=== PATIENT | female | born 1970 ===

== ENCOUNTER 2022-11-08 10:27 | Outpatient (REF) | payer OTHER, SELFPAY ==
[2022-11-08 11:15] LABS: MANUAL DIFF FLAG NO
[2022-11-08 11:43] LABS: Basophils Percent Auto 0.4 % (0-2); Eosinophils Absolute Auto 0.1 X10*3/uL (0.0-0.4); Eosinophils Percent Auto 1.6 % (0-4); Hematocrit 44.8 % (37.0-47.0); Hemoglobin 14.5 g/dl (12.0-16.0); Imm Gran Abs Auto 0.02 X10*3/uL (0.00-0.03); Imm Gran Pct Auto 0.4 % (0.0-0.4); Lymphocytes Absolute Auto 1.8 X10*3/uL (1.2-4.9); Lymphocytes Percent Auto 36.5 % (20-40); Mean Corpuscular HGB Conc 32.4 g/dl (31.0-35.0); Mean Corpuscular Hemoglobin 27.4 pg (27.0-33.0); Mean Corpuscular Volume 84.5 fL (80.0-98.0); Monocytes Absolute Auto 0.5 X10*3/uL (0.1-1.2); Monocytes Percent Auto 10.3 % (2-11); Neutrophils Absolute Auto 2.5 x10*3/uL (2.0-8.3); Neutrophils Percent Auto 50.8 % (45-73); Platelet Count 244 X10*3/uL (160-400); Red Cell Distribution Width 12.9 % (11.0-16.0); White Blood Count 4.9 X10*3/uL (4.8-10.8)
[2022-11-08 12:05] LABS: Alanine Aminotransferase 27 U/L (0-31); Albumin Level 3.8 g/dL (3.5-5.0); Alkaline Phosphatase 81 U/L (39-117); Anion Gap 12 (12-20); Aspartate Amino Transferase 19 U/L (5-31); Bilirubin Total 1.1 mg/dL (0.0-1.0); Blood Urea Nitrogen 8 mg/dL (9-16); Calcium 8.7 mg/dL (8.4-10.2); Carbon Dioxide 25 mmol/L (22-29); Chloride 108 mmol/L (96-108); Cholesterol 154 mg/dL; Estimated Glomerular Filt Rate > 60; Glucose Fasting 82 mg/dL (60-99); HDL Cholesterol 29 mg/dL; LDL Cholesterol Calculated 118 mg/dl; Potassium 4.5 mmol/L (3.3-5.1); Sodium 140 mmol/L (135-145); Total Protein 6.7 g/dL (6.5-8.0); Triglycerides 39 mg/dL
[2022-11-08 12:20] LABS: TSH reflex Free T4 1.05 uIU/mL (0.32-4.0)
[2022-11-08 12:28] LABS: Creatinine Urine 106.89 mg/dL; Microalbumin Urine < 5.0 mg/L
== END 2022-11-08 10:28 | disposition home or self-care (01) ==
LOC: HO.HMGCLDS 10:27
PROVIDERS: PCP Internal Medicine; Visit Provider Internal Medicine
DX: E03.9 Hypothyroidism, unspecified (principal); I10 Essential (primary) hypertension
CPT/HCPCS: 36415; 80053; 80061; 82043; 84443; 85025

== ENCOUNTER 2023-11-13 10:05 | Outpatient (REF) | payer OTHER, SELFPAY ==
[2023-11-13 13:24] LABS: MANUAL DIFF FLAG NO
[2023-11-13 13:28] LABS: Basophils Percent Auto 0.5 % (0-2); Eosinophils Absolute Auto 0.1 X10*3/uL (0.0-0.4); Hematocrit 41.8 % (37.0-47.0); Hemoglobin 13.7 g/dl (12.0-16.0); Imm Gran Abs Auto 0.01 X10*3/uL (0.00-0.03); Imm Gran Pct Auto 0.2 % (0.0-0.4); Lymphocytes Absolute Auto 1.8 X10*3/uL (1.2-4.9); Lymphocytes Percent Auto 43.3 % (20-40); Mean Corpuscular HGB Conc 32.8 g/dl (31.0-35.0); Mean Corpuscular Hemoglobin 26.5 pg (27.0-33.0); Mean Corpuscular Volume 80.9 fL (80.0-98.0); Mean Platelet Volume 10.4 fL (9.4-12.3); Monocytes Absolute Auto 0.4 X10*3/uL (0.1-1.2); Monocytes Percent Auto 9.5 % (2-11); Neutrophils Absolute Auto 1.8 x10*3/uL (2.0-8.3); Neutrophils Percent Auto 44.5 % (45-73); Platelet Count 224 X10*3/uL (160-400); Red Blood Count 5.17 X10*6/uL (4.20-5.50); Red Cell Distribution Width 12.2 % (11.0-16.0); White Blood Count 4.1 X10*3/uL (4.8-10.8)
[2023-11-13 13:38] LABS: Appearance Urine Clear; Color Urine Yellow; Glucose Urine UA Negative (Negative); Leukocyte Esterase Urine Moderate (2+) (Negative); Nitrite Urine Negative (Negative); UMIC TRIGGER UA YES; Urine Blood Negative (Negative); Urine Ketones Negative (Negative); Urine Protein Negative (Neg-Trace)
[2023-11-13 13:53] LABS: Bacteria Urine Trace (None Seen); Hyaline Casts Urine 0-2 /LPF (0-2); RBC Urine 0-2 /HPF (0-2); Squamous Epithelial Cell Urine 0-2 /HPF (0-2); WBC Urine 0-5 /HPF (0-5)
[2023-11-13 13:56] LABS: Alanine Aminotransferase 21 U/L (0-31); Albumin Level 3.8 g/dL (3.5-5.0); Alkaline Phosphatase 98 U/L (39-117); Anion Gap 11 (12-20); Aspartate Amino Transferase 20 U/L (5-31); Bilirubin Total 1.2 mg/dL (0.0-1.0); Blood Urea Nitrogen 8 mg/dL (9-16); Calcium 9.5 mg/dL (8.4-10.2); Carbon Dioxide 31 mmol/L (22-29); Chloride 105 mmol/L (96-108); Cholesterol 181 mg/dL (<200); Estimated Glomerular Filt Rate > 60; Glucose Fasting 93 mg/dL (60-99); HDL Cholesterol 45 mg/dL (>40); Iron 93 mcg/dL (30-160); LDL Cholesterol Calculated 122 mg/dL (<100); Percent Iron Saturation 32 % (15-50); Potassium 3.1 mmol/L (3.3-5.1); Sodium 144 mmol/L (135-145); Total Iron Binding Capacity 295 mcg/dL (228-428); Total Protein 7.3 g/dL (6.5-8.0); Triglycerides 72 mg/dL (<150); Unsaturated Iron Binding 202 ug/dL
[2023-11-13 14:00] LABS: TSH reflex Free T4 < 0.01 uIU/mL (0.32-4.0)
[2023-11-13 14:43] LABS: Free T4 (Free Thyroxine) 1.42 ng/dL (0.71-1.85)
== END 2023-11-13 10:06 | disposition home or self-care (01) ==
LOC: HO.HMGCLDS 10:05
PROVIDERS: PCP Internal Medicine; Visit Provider Internal Medicine
DX: Z00.00 Encounter for general adult medical examination without abnormal findings (principal); N92.0 Excessive and frequent menstruation with regular cycle; I10 Essential (primary) hypertension
CPT/HCPCS: 36415; 80053; 80061; 81001; 83540; 84439; 84443; 85025

== ENCOUNTER 2023-11-13 10:24 | Outpatient (AMB) | payer OTHER, SELFPAY ==
[2023-11-13 11:34] VITALS: BP 138/86; PULSE 69; O2SAT 98; BMI 38.8
--- NOTE | 2023-11-13 11:34 | MHC.PC.OV ---
Vital Signs 11/13/23 11:34 Height 5 ft 5 in Weight 233 lb BMI 38.8 BP 138/86 Blood Pressure Location Rt brachial Position Sitting Pulse 69 Pulse Source Pulse Oximeter Pulse Oximetry (%) 98 Oxygen Delivery Method Room Air Intake Visit Reasons: PE Intake Note: Pt is here today for PE. Allergies amlodipine [Lotrel] Allergy (Unknown, Verified 11/13/23 11:36) unknown benazepril [Lotrel] Allergy (Unknown, Verified 11/13/23 11:36) unknown chlorthalidone Allergy (Unknown, Verified 11/13/23 11:36) unknown clonidine Allergy (Unknown, Verified 11/13/23 11:36) unknown diltiazem [Cardizem] Allergy (Unknown, Verified 11/13/23 11:36) Unknown felodipine Allergy (Unknown, Verified 11/13/23 11:36) unknown furosemide Allergy (Unknown, Verified 11/13/23 11:36) unknown hydrochlorothiazide [Avalide] Allergy (Unknown, Verified 11/13/23 11:36) unknown irbesartan [Avalide] Allergy (Unknown, Verified 11/13/23 11:36) unknown valsartan [Diovan] Allergy (Unknown, Verified 11/13/23 11:36) unknown Medication List - Last Reconciled 11/13/23 by Zhanna Casey MD amlodipine 2.5 mg PO DAILY blood pressure test kit-large As directed carvedilol 25 mg PO BID eplerenone 50 mg PO BID levothyroxine 150 mcg PO DAILY Tobacco use date assessed: 11/13/23 Dental Screening Dental Screen Date: 11/13/23 Did you have a dental visit in the last 12 months?: Yes Did you have a dental problem in the last 6 months where you did not have access to dental care?: No Was dental information given to patient?: Patient has dentist HPI PE HPI Details Pt presents for PE. Pt c/o new onset left temporal region, daily SANDOVAL, worse when lying on the right side, occasionally waking patient up at night. She denies nausea vomiting change in vision weakness or numbness in extremities PFSH Medical History (Updated 11/13/23 @ 12:21 by Zhanna Casey MD) Normal pelvic exam Annual physical exam Normal breast exam Rash Chronic iron deficiency anemia Menorrhagia Obesity Thyroid nodule Goiter HTN (hypertension) Surgical History Hx of hysterectomy Hx of colonoscopy No pertinent past surgical history Family History Father HTN (hypertension) Diabetes mellitus Mother No problems noted. Social History Housing: House Patient Tobacco Use Status: Never used Tobacco e-Cigarette/Vaping Use: Never Used service: No Current occupational status: employed Cognitive needs: No Hearing needs: No Vision needs: Yes Questionnaire PHQ-9 Over the last 2 weeks, how often have you been bothered by any of the following problems? 1. Little interest or pleasure in doing things: not at all 2. Feeling down, depressed, or hopeless: not at all 3. Trouble falling or staying asleep, or sleeping too much: nearly every day 4. Feeling tired or having little energy: not at all 5. Poor appetite or overeating: not at all 6. Feeling bad about yourself - or that you are a failure or have let yourself or your family down: not at all 7. Trouble concentrating on things, such as reading the newspaper or watching television: not at all 8. Moving or speaking so slowly that other people could have noticed. Or the opposite - being so fidgety or restless that you have been moving around a lot more than usual: not at all 9. Thoughts that you would be better off or of hurting yourself in some way: not at all Total score: 3 Depression Screening Interpretation: Negative Depression Screening Done: Yes Source: Developed by Drs. Duke Mendoza, Annalise Owen, Chago Hartley and colleagues, with an educational negar from [employer]. Thrive Questionnaire Date Thrive assessed: 11/13/23 I am a: Patient What is your living situation today?: I have a steady place to live Within the past 12 months, did the food you bought not last and you didn't have the money to get more?: Sometimes True Within the past 12 months, did you worry whether your food would run out before you got money to buy more?: Sometimes True Do you have trouble paying for medicines?: No Do you have trouble getting transportation to medical appointments?: No Do you have trouble paying your heating and electricity bill?: Yes Do you have trouble taking care of your child, family member or friend?: No Do you have trouble with day-to-day activities such as bathing, preparing meals, shopping, managing finances, etc.?: No Are you currently unemployed and looking for a job?: No Are you interested in more education?: Yes Please select the resources that you would like help with: Education THRIVE Score: 3 AUDIT C Alcohol Use Questionnaire (AUDIT-C) 1. How often do you have a drink containing alcohol?: Never 3. How often do you have six or more drinks on one occasion?: Never Total Score: 0 HUGH-7 AMB Questionnaire HUGH-7 Date HUGH - 7 assessed: 11/13/23 Feeling nervous, anxious, or on edge: 0 = Not at all Not being able to stop or control worryin = Not at all Worrying too much about different things: 1 = Several days Trouble relaxin = Not at all Being so restless that it is hard to sit still: 0 = Not at all Becoming easily annoyed or irritable: 0 = Not at all Feeling afraid as if something awful might happen: 0 = Not at all Total HUGH-7 score (0-4 normal; 5-9 mild; 10-14 moderate; 15-21 severe): 1 Source: Developed by Drs. Duke Mendoza, Annalise Owen, Chago Hartley and colleagues, with an educational negar from [employer]. Review of Systems Const All systems reviewed & are unremarkable except as noted in HPI and below Eyes Reports no additional complaints ENT Reports no additional complaints Card Reports no additional complaints Resp Reports no additional complaints GI Reports no additional complaints Reports no additional complaints Physical exam (Primary Care) Vital Signs: Last Vital Signs Pulse 69 11/13/23 11:34 BP 138/86 11/13/23 11:34 Pulse Ox 98 11/13/23 11:34 Oxygen Delivery Method Room Air 11/13/23 11:34 BMI result Body Mass Index 38.8 Tobacco/Smoking Status: Tobacco use Status Tobacco use date assessed 11/13/23 11/13/23 11:41 Patient Tobacco Use Status Never used Tobacco 11/13/23 11:41 e-Cigarette/Vaping Use Never Used 11/13/23 11:41 PHQ-9: PHQ-9 Score PHQ-9: Total score 3 11/13/23 12:16 Depression Screening Interpretation: Negative Thrive Assessment: Date of Thrive Assessment Date Thrive assessed 11/13/23 11/13/23 12:16 Const General: no acute distress [facility] General nose exam: Normal external nose present Mouth: Normal oral and palatal mucosa present Eyes General: appearance normal, both eyes and all related structures Neck Neck: Yes no lymphadenopathy and Yes supple Resp Effort & Inspection: normal respiratory effort Auscultation: clear to auscultation bilaterally Cardio Rhythm: regular rhythm Heart sounds: S1 normal heart sound present and S2 normal heart sound present GI Inspection: Yes normal to inspection Palpation (GI): Soft to palpation Percussion: Yes normal to percussion Auscultation: normal bowel sounds Neuro Cranial nerves: Yes CN's II-XII intact bilaterally Gait exam (Neuro): Normal gait present Motor exam (neuro): 5/5 motor strength present throughout Romberg Test: Negative Assessment and Plan Assessment & Plan (1) New onset headache: Code(s): R51.9 - Headache, unspecified Plan: Obtain CT of the brain to rule out space-occupying lesion (2) HTN (hypertension): Comment: Follows up with purifying plant operator Dr. Quintero Code(s): I10 - Essential (primary) hypertension Plan: Restart blood pressure medications follow-up in 6 weeks (3) Rash: Code(s): R21 - Rash and other nonspecific skin eruption Plan: Referred to dermatology (4) Hypothyroidism: Code(s): E03.9 - Hypothyroidism, unspecified Plan: Continue Levothyroxine (5) Annual physical exam: Code(s): Z00.00 - Encounter for general adult medical examination without abnormal findings Plan: Well-balanced diet regular exercise weight loss discussed with the patient. Follow-up in 6 weeks. Referred to GI for screening colonoscopy. patient requested [facility]. Orders: Orders CT head/brain wo IV con Today R51.9 - Headache, unspecified Referrals Gastroenterology Referral Z00.00 - Encounter for general adult medical examination without abnormal findings Dermatology Referral R21 - Rash and other nonspecific skin eruption Medications: New eplerenone 50 mg PO BID 180 tabs 3RF carvedilol must administer with a meal/food 25 mg PO BID 180 tabs 3RF amlodipine 2.5 mg PO DAILY 90 tabs 3RF Coding Level of Care Code Est Pt Prev Care 40-64y(66610) Diagnoses New onset headache R51.9 HTN (hypertension) I10 Rash R21 Hypothyroidism E03.9 Annual physical exam Z00.00
== END 2023-11-13 12:27 | disposition home or self-care (01) ==
PROVIDERS: Visit Provider Internal Medicine
DX: R51.9 Headache, unspecified (principal); I10 Essential (primary) hypertension; R21 Rash and other nonspecific skin eruption; E03.9 Hypothyroidism, unspecified; Z00.00 Encounter for general adult medical examination without abnormal findings
CPT/HCPCS: 99396

== ENCOUNTER 2023-11-28 07:32 | Outpatient (REF) | payer OTHER, SELFPAY ==
[2023-11-28 11:08] LABS: Anion Gap 13 (12-20); Blood Urea Nitrogen 13 mg/dL (9-16); Carbon Dioxide 26 mmol/L (22-29); Chloride 108 mmol/L (96-108); Estimated Glomerular Filt Rate > 60; Glucose Random 99 mg/dL (60-115); Potassium 3.9 mmol/L (3.3-5.1); Sodium 143 mmol/L (135-145)
[2023-11-28 11:11] LABS: TSH reflex Free T4 < 0.01 uIU/mL (0.32-4.0)
[2023-11-28 11:21] LABS: Erythrocyte Sedimentation Rate 16 MM/HR (0-20)
[2023-11-28 12:19] LABS: Free T4 (Free Thyroxine) 1.25 ng/dL (0.71-1.85)
== END 2023-11-28 07:33 | disposition home or self-care (01) ==
LOC: HO.HMGCLDS 07:32
PROVIDERS: PCP Internal Medicine; Visit Provider Internal Medicine
DX: I10 Essential (primary) hypertension (principal); R51.9 Headache, unspecified; E03.9 Hypothyroidism, unspecified
CPT/HCPCS: 36415; 80048; 84439; 84443; 85652

== ENCOUNTER 2023-12-31 13:38 | Outpatient (AMB) | payer OTHER, SELFPAY ==
[2023-12-31 13:44] VITALS: BP 126/86; PULSE 67; O2SAT 98; BMI 38.3
--- NOTE | 2023-12-31 13:44 | A.OFFPC_ITS ---
Vital Signs 12/31/23 13:44 Height 5 ft 5 in Weight 230 lb BMI 38.3 BP 126/86 Blood Pressure Location Lt brachial Position Sitting Pulse 67 Pulse Source Pulse Oximeter Pulse Oximetry (%) 98 Oxygen Delivery Method Room Air Intake Visit Reasons: 6 week follow up Intake Note: Pt is here today for 6 weeks follow up visit. Allergies amlodipine [Lotrel] Allergy (Unknown, Verified 12/31/23 13:44) unknown benazepril [Lotrel] Allergy (Unknown, Verified 12/31/23 13:44) unknown chlorthalidone Allergy (Unknown, Verified 12/31/23 13:44) unknown clonidine Allergy (Unknown, Verified 12/31/23 13:44) unknown diltiazem [Cardizem] Allergy (Unknown, Verified 12/31/23 13:44) Unknown felodipine Allergy (Unknown, Verified 12/31/23 13:44) unknown furosemide Allergy (Unknown, Verified 12/31/23 13:44) unknown hydrochlorothiazide [Avalide] Allergy (Unknown, Verified 12/31/23 13:44) unknown irbesartan [Avalide] Allergy (Unknown, Verified 12/31/23 13:44) unknown valsartan [Diovan] Allergy (Unknown, Verified 12/31/23 13:44) unknown Medication List - Last Reconciled 12/31/23 by Zhanna Casey MD amlodipine 2.5 mg PO DAILY blood pressure test kit-large As directed carvedilol 25 mg PO BID Inspra (eplerenone) 50 mg PO BID NS levothyroxine 137 mcg PO DAILY Tobacco use date assessed: 12/31/23 Dental Screening Dental Screen Date: 11/13/23 HPI 6 week follow up HPI Details Pt presents for f/u HTN and hypothyroid, stable on meds. Pt c/o positional vertigo for 1 day with nausea and vomiting. pt c/o persistent SANDOVAL on and off. PFSH Medical History Normal pelvic exam Annual physical exam Normal breast exam Rash Chronic iron deficiency anemia Menorrhagia Obesity Thyroid nodule Goiter HTN (hypertension) Surgical History Hx of hysterectomy Hx of colonoscopy No pertinent past surgical history Family History Father HTN (hypertension) Diabetes mellitus Mother No problems noted. Social History Housing: House Patient Tobacco Use Status: Never used Tobacco e-Cigarette/Vaping Use: Never Used service: No Current occupational status: employed Cognitive needs: No Hearing needs: No Vision needs: Yes Questionnaire Thrive Questionnaire Date Thrive assessed: 11/13/23 HUGH-7 AMB Questionnaire HUGH-7 Date HUGH - 7 assessed: 11/13/23 Source: Developed by Drs. Duke Mendoza, Annalise Owen, Chago Hartley and colleagues, with an educational negar from [employer]. Review of Systems Const All systems reviewed & are unremarkable except as noted in HPI and below Eyes Reports no additional complaints ENT Reports no additional complaints Card Reports no additional complaints Resp Reports no additional complaints GI Reports no additional complaints Reports no additional complaints Physical exam (Primary Care) Vital Signs: Last Vital Signs Pulse 67 12/31/23 13:44 BP 126/86 12/31/23 13:44 Pulse Ox 98 12/31/23 13:44 Oxygen Delivery Method Room Air 12/31/23 13:44 BMI result Body Mass Index 38.3 Tobacco/Smoking Status: Tobacco use Status Tobacco use date assessed 12/31/23 12/31/23 14:03 Patient Tobacco Use Status Never used Tobacco 12/31/23 14:03 e-Cigarette/Vaping Use Never Used 12/31/23 13:45 Thrive Assessment: Date of Thrive Assessment Date Thrive assessed 11/13/23 12/31/23 13:45 Const General: no acute distress HENMT Head: Yes normal to inspection Face and sinus: Yes normal facial exam Eyes General: appearance normal, both eyes and all related structures Neck Neck: Yes supple Resp Effort & Inspection: normal respiratory effort Auscultation: clear to auscultation bilaterally Cardio Rhythm: regular rhythm Heart sounds: S1 normal heart sound present and S2 normal heart sound present Neuro Cranial nerves: Yes CN's II-XII intact bilaterally Gait exam (Neuro): Normal gait present Motor exam (neuro): 5/5 motor strength present throughout Romberg Test: Negative Assessment and Plan Assessment & Plan (1) HTN (hypertension): Comment: Follows up with commanding officer garage Dr. Quintero Code(s): I10 - Essential (primary) hypertension Plan: cont meds. (2) Hypothyroidism: Code(s): E03.9 - Hypothyroidism, unspecified Plan: cont Levothyroxine (3) New onset headache: Code(s): R51.9 - Headache, unspecified Plan: reschedule CT of brain Orders: Orders Uric Acid 01/28/24 I10 - Essential (primary) hypertension Medications: New meclizine 25 mg PO BID PRN 20 tabs 0RF motion sickness Coding Level of Care Code Est Pt Level 4 (78565) Diagnoses HTN (hypertension) I10 Hypothyroidism E03.9 New onset headache R51.9
== END 2023-12-31 14:48 | disposition home or self-care (01) ==
PROVIDERS: PCP Internal Medicine; Visit Provider Internal Medicine
DX: I10 Essential (primary) hypertension (principal); E03.9 Hypothyroidism, unspecified; R51.9 Headache, unspecified
CPT/HCPCS: 99214

== ENCOUNTER 2024-01-01 12:56 | Outpatient (REF) | payer OTHER, SELFPAY ==
--- NOTE | ~2024-01-01 | CT_ITS ---
EXAMINATION: CT HEAD WITHOUT CONTRAST CLINICAL INFORMATION: Headache. COMPARISON: None available. TECHNIQUE: Contiguous axial imaging was performed from the skull base to vertex without intravenous administration of contrast. This CT examination was performed using dose optimization techniques as appropriate, variously including the following: *Automated exposure control *Adjustment of mA and/or kV according to patient size (this includes techniques or standardized protocols for targeted exams where dose is matched to indication/reason for exam; i.e. extremities or head) *Use of iterative reconstruction technique DLP: 823 mGy-cm FINDINGS: There is no evidence of acute intracranial hemorrhage or territorial infarction. No mass effect or midline shift is seen. Jimenez to white matter differentiation is preserved. No extra-axial fluid collections are identified. No hydrocephalus. The osseous structures and soft tissues are intact. Hyperostosis frontalis. Minimal opacification of the frontal sinuses and ethmoid air cells. Mastoid air cells are clear. CT/CT head/brain wo IV con IMPRESSION: No acute intracranial pathology.
== END 2024-01-01 12:57 | disposition home or self-care (01) ==
LOC: HO.CT 12:56
PROVIDERS: PCP Internal Medicine; Visit Provider Internal Medicine
DX: R51.9 Headache, unspecified (principal)
CPT/HCPCS: 70450

== ENCOUNTER 2024-01-27 06:31 | Outpatient (REF) | payer OTHER, SELFPAY ==
[2024-01-27 10:43] LABS: Uric Acid 4.1 mg/dL (2.4-5.7)
[2024-01-27 10:58] LABS: TSH reflex Free T4 0.01 uIU/mL (0.32-4.0)
[2024-01-27 12:49] LABS: Free T4 (Free Thyroxine) 1.26 ng/dL (0.71-1.85)
== END 2024-01-27 06:32 | disposition home or self-care (01) ==
LOC: HO.HMGCLDS 06:31
PROVIDERS: PCP Internal Medicine; Visit Provider Internal Medicine
DX: E03.9 Hypothyroidism, unspecified (principal); I10 Essential (primary) hypertension
CPT/HCPCS: 36415; 84439; 84443; 84550

== ENCOUNTER 2024-11-16 10:08 | Outpatient (REF) | payer OTHER, SELFPAY ==
--- OUTSIDE RECORDS SUMMARY | 2024-11-16 11:30 | XMS_ITS | Clinical Summary ---
Author Organization [facility] Address [address] [place] [phone] Phone Care Team Providers Care Burning Supervisor Name Role Phone Zhanna Casey MD Primary Care Provider [phone] Allergies Active Allergy Reactions Criticality Noted Date Comments Chlorthalidone Rash Low 02/22/2021 Furosemide Other (see comments) 02/22/2021 Hydrochlorothiazide Rash Low 01/14/2017 Spironolactone 02/22/2021 Medications norethindrone (AYGESTIN) 5 MG tablet Take 2 tablets by mouth 1 (one) time each day Active levothyroxine (SYNTHROID, LEVOTHROID) 137 MCG tablet Take 137 mcg by mouth 1 (one) time each day Active betamethasone dipropionate (DIPROLENE) 0.05 % ointment APPLY TO AFFECTED AREAS ON THE SCALP THREE TIMES WEEKLY 9 Active carvedilol (COREG) 25 MG tabletIndications :Essential hypertension TAKE 1 TABLET BY MOUTH IN THE MORNING AND IN THE EVENING 180 tablet 2 3 Active eplerenone (INSPRA) 50 MG tabletIndications :Hypokalemia,Esse ntial hypertension,Elisha l stone Take 1 tablet (50 mg total) by mouth 1 (one) time each day 180 tablet 2 4 Active amLODIPine (NORVASC) 5 MG tablet Take 1 tablet (5 mg total) by mouth 1 (one) time each day 90 tablet 3 4 02/17/20 Active Active Problems Problem Noted Date Diagnosed Date Essential hypertension 02/22/2021 Renal stone 02/22/2021 Hypokalemia 03/16/2014 Resolved Problems Problem Noted Date Diagnosed Date Resolved Date Benign secondary hypertension 02/22/2021 02/04/2023 Immunizations Immunization Administration Dates Next Due Influenza Split High Dose Preservative Free IM 1 07/02/2014 Influenza, Quadrivalent, Preservative Free 05/20 Moderna SARS-COV-2 05/18/2021 Family History Medical History Relation Comments Diabetes Father type II Heart disease Father Hypertension Father Kidney disease Mother Hypertension Sibling Relation Status Comments Father Alive Mother Sibling Social History Tobacco Use Types Packs/Day Years Used Date Smoking Tobacco: Never Smokeless Tobacco: Never Tobacco Cessation:Counseling Given: Not Answered Alcohol Use Standard Drinks/Week Comments No 0 (1 standard drink = 0.6 oz pur e alcohol) Comments Unknown Sex and Gender Information Value Date Recorded Sex Assigned at Not on file Legal Sex Female 4:41 PM EST Gender Identity Not on file Sexual Orientation Not on file Last Filed Vital Signs Vital Sign Reading Time Taken Comments Blood Pressure 110/80 05/19/2024 11:04 AM EST Pulse 77 05/19/2024 10:43 AM EST Temperature - - Respiratory Rate - - Oxygen Saturation 98% 05/19/2024 10:43 AM EST Inhaled Oxygen Concentration - - Weight 108 kg (238 lb) 05/19/2024 10:43 AM EST Height 167.6 cm (5' 6 ) 02/17/2024 3:10 PM EDT Body Mass Index 38.41 02/17/2024 3:10 PM EDT Plan of Treatment Upcoming Encounters Date Type Department Care Team (Late st Contact Info) Description 11/18/2024 10:15 AM EDT Office Visit [facility] [address] [phone] Beatriz Valdivia ARNP [address] [phone] Health Maintenance Due Date Last Done Comments Breast Cancer Screening 1970 Hepatitis B Vaccine (1 of 3 - 19+ 3-dose series) 1989 Pneumococcal Vaccine: 50+ Ye ars (1 of 2 - PCV) 1989 Colorectal Cancer Screening: Annual FOBT 2019 Colorectal Cancer Screening: Colonoscopy 2019 Colorectal Cancer Screening: Sigmoidoscopy 2019 Influenza Vaccine (Season Ended) 2025 05/02/2021, 05/20/2020, 05/02/2015, Additional history exists Insurance Medicaid Medicaid Care Teams Burning Supervisor Relationship Specialty Start Date End Date Zhanna Casey MD [address] [place] [phone] PCP - General 07/11/20
[2024-11-16 13:33] LABS: Appearance Urine Clear; Color Urine Yellow; Glucose Urine UA Negative (Negative); Leukocyte Esterase Urine Moderate (2+) (Negative); Nitrite Urine Negative (Negative); Specific Gravity - Urine 1.015 (1.005-1.025); UMIC TRIGGER UA YES; Urine Blood Negative (Negative); Urine Ketones Negative (Negative); Urine Protein Negative (Neg-Trace)
[2024-11-16 13:37] LABS: Bacteria Urine None Seen (None Seen); Hyaline Casts Urine 0-2 /LPF (0-2); RBC Urine 0-2 /HPF (0-2); Squamous Epithelial Cell Urine 0-2 /HPF (0-2)
[2024-11-17 10:18] LABS: Triiodothyronine T3 Free 3.6 pg/mL (2.3-4.2)
== END 2024-11-16 10:09 | disposition home or self-care (01) ==
LOC: HO.HMGCLDS 10:08
PROVIDERS: PCP Internal Medicine; Visit Provider Internal Medicine
DX: Z00.00 Encounter for general adult medical examination without abnormal findings (principal); R21 Rash and other nonspecific skin eruption; I10 Essential (primary) hypertension; E03.9 Hypothyroidism, unspecified; Z79.899 Other long term (current) drug therapy
CPT/HCPCS: 36415; 81001; 84481; 96127; 99396

== ENCOUNTER 2024-11-16 10:08 | Outpatient (AMB) | payer OTHER, SELFPAY ==
[2024-11-16 10:11] VITALS: BP 122/82; PULSE 65; RESP 20; TEMP 36.6; O2SAT 98; BMI 40.1
--- NOTE | 2024-11-16 10:11 | A.OFFPC_ITS ---
Vital Signs 11/16/24 10:11 Height 5 ft 5 in Weight 241 lb BMI 40.1 BP 122/82 Blood Pressure Location Lt brachial Position Sitting Respiration 20 Pulse 65 Pulse Source Pulse Oximeter Temp 97.8 F Temp Source Oral Pulse Oximetry (%) 98 Oxygen Delivery Method Room Air Intake Visit Reasons: Annual Intake Note: Pt is here today for PE. Allergies amlodipine [Lotrel] Allergy (Unknown, Verified 11/16/24 10:13) unknown benazepril [Lotrel] Allergy (Unknown, Verified 11/16/24 10:13) unknown chlorthalidone Allergy (Unknown, Verified 11/16/24 10:13) unknown clonidine Allergy (Unknown, Verified 11/16/24 10:13) unknown diltiazem [Cardizem] Allergy (Unknown, Verified 11/16/24 10:13) Unknown felodipine Allergy (Unknown, Verified 11/16/24 10:13) unknown furosemide Allergy (Unknown, Verified 11/16/24 10:13) unknown hydrochlorothiazide [Avalide] Allergy (Unknown, Verified 11/16/24 10:13) unknown irbesartan [Avalide] Allergy (Unknown, Verified 11/16/24 10:13) unknown valsartan [Diovan] Allergy (Unknown, Verified 11/16/24 10:13) unknown Medication List - Last Reconciled 11/16/24 by Zhanna Casey MD amlodipine 2.5 mg PO DAILY blood pressure test kit-large As directed carvedilol 25 mg PO BID Inspra (eplerenone) 50 mg PO BID NS levothyroxine 137 mcg PO DAILY meclizine 25 mg PO BID PRN Tobacco use date assessed: 11/16/24 Dental Screening Dental Screen Date: 11/16/24 Did you have a dental visit in the last 12 months?: Yes Did you have a dental problem in the last 6 months where you did not have access to dental care?: No Was dental information given to patient?: Patient has dentist HPI Annual HPI Details Patient presents for a physical. She complains of intermittent pruritic rash on her legs abdomen and back for the last few months. She does not recall change in the laundry detergent or body soaps or lotions. Patient uses a hot water for shower. [facility] Medical History (Updated 11/16/24 @ 11:37 by Zhanna Casey MD) Normal pelvic exam Annual physical exam Normal breast exam Rash Chronic iron deficiency anemia Menorrhagia Obesity Thyroid nodule Goiter HTN (hypertension) Surgical History Hx of hysterectomy Hx of colonoscopy No pertinent past surgical history Family History Father HTN (hypertension) Diabetes mellitus Mother No problems noted. Social History Housing: House Patient Tobacco Use Status: Never used Tobacco e-Cigarette/Vaping Use: Never Used service: No Current occupational status: employed Cognitive needs: No Hearing needs: No Vision needs: Yes Questionnaire PHQ-9 Over the last 2 weeks, how often have you been bothered by any of the following problems? 1. Little interest or pleasure in doing things: not at all 2. Feeling down, depressed, or hopeless: not at all 3. Trouble falling or staying asleep, or sleeping too much: not at all 4. Feeling tired or having little energy: not at all 5. Poor appetite or overeating: not at all 6. Feeling bad about yourself - or that you are a failure or have let yourself or your family down: not at all 7. Trouble concentrating on things, such as reading the newspaper or watching television: not at all 8. Moving or speaking so slowly that other people could have noticed. Or the opposite - being so fidgety or restless that you have been moving around a lot more than usual: not at all 9. Thoughts that you would be better off or of hurting yourself in some way: not at all Total score: 0 Depression Screening Interpretation: Negative Depression Screening Done: Yes 58122 - PHQ-9 Billing: Yes Source: Developed by Drs. Duke Mendoza, Annalise Owen, Chago Hartley and colleagues, with an educational negar from [employer]. Thrive Questionnaire Date Thrive assessed: 11/16/24 I am a: Patient What is your living situation today?: I have a steady place to live Within the past 12 months, did the food you bought not last and you didn't have the money to get more?: I choose not to answer this question Within the past 12 months, did you worry whether your food would run out before you got money to buy more?: I choose not to answer this question Do you have trouble paying for medicines?: I choose not to answer this question Do you have trouble getting transportation to medical appointments?: No Do you have trouble paying your heating and electricity bill?: I choose not to answer this question Do you have trouble taking care of your child, family member or friend?: I choose not to answer this question Do you have trouble with day-to-day activities such as bathing, preparing meals, shopping, managing finances, etc.?: I choose not to answer this question Are you currently unemployed and looking for a job?: I choose not to answer this question Are you interested in more education?: I choose not to answer this question Please select the resources that you would like help with: None Currently or been in a relationship where the following occur: I choose not to answer THRIVE Score: 0 AUDIT C Alcohol Use Questionnaire (AUDIT-C) 1. How often do you have a drink containing alcohol?: Never 3. How often do you have six or more drinks on one occasion?: Never Total Score: 0 HUGH-7 AMB Questionnaire HUGH-7 Date HUGH - 7 assessed: 11/16/24 Feeling nervous, anxious, or on edge: 0 = Not at all Not being able to stop or control worryin = Not at all Worrying too much about different things: 0 = Not at all Trouble relaxin = Not at all Being so restless that it is hard to sit still: 0 = Not at all Becoming easily annoyed or irritable: 0 = Not at all Feeling afraid as if something awful might happen: 0 = Not at all Total HUGH-7 score (0-4 normal; 5-9 mild; 10-14 moderate; 15-21 severe): 0 Source: Developed by Drs. Duke Mendoza, Annalise Owen, Chago Hartley and colleagues, with an educational negar from [employer]. HUGH-7 Assessment Billing HUGH-7 Assessment Tool: HUGH-7 Assessment 87329 Review of Systems Const All systems reviewed & are unremarkable except as noted in HPI and below Eyes Reports no additional complaints ENT Reports no additional complaints Card Reports no additional complaints Resp Reports no additional complaints GI Reports no additional complaints Reports no additional complaints Physical exam (Primary Care) Vital Signs: Last Vital Signs Temp 97.8 F 11/16/24 10:11 Pulse 65 11/16/24 10:11 Resp 20 11/16/24 10:11 BP 122/82 11/16/24 10:11 Pulse Ox 98 11/16/24 10:11 Oxygen Delivery Method Room Air 11/16/24 10:11 BMI result Body Mass Index 40.1 Tobacco/Smoking Status: Tobacco use Status Tobacco use date assessed 11/16/24 11/16/24 10:14 Patient Tobacco Use Status Never used Tobacco 11/16/24 10:14 e-Cigarette/Vaping Use Never Used 11/16/24 10:11 PHQ-9: PHQ-9 Score PHQ-9: Total score 0 11/16/24 10:14 Depression Screening Interpretation: Negative Thrive Assessment: Date of Thrive Assessment Date Thrive assessed 11/16/24 11/16/24 10:14 Currently or been in a relationship where the following occur: I choose not to answer Const General: no acute distress HENMT Head: Yes normal to inspection Ears: hearing grossly normal bilaterally Mouth: Normal oral and palatal mucosa present Eyes General: appearance normal, both eyes and all related structures Neck Neck: Yes no lymphadenopathy and Yes supple Resp Effort & Inspection: normal respiratory effort Auscultation: clear to auscultation bilaterally Cardio Rhythm: regular rhythm Heart sounds: S1 normal heart sound present and S2 normal heart sound present GI Inspection: Yes normal to inspection Palpation (GI): Soft to palpation Percussion: Yes normal to percussion Auscultation: normal bowel sounds Skin Other: Erythematous round lesions about 2 cm in diameter on upper thighs bilaterally Coding Level of Care Code Est Pt Prev Care 40-64y(76578) Diagnoses Rash R21 HTN (hypertension) I10 Hypothyroidism E03.9 Hx of colonoscopy Z98.890 Annual physical exam Z00.00 Additional Codes HUGH-7 Assessment Billing - HUGH-7 Assessment Tool: HUGH-7 Assessment 36011 ([id number]) PHQ-9 - 54766 - PHQ-9 Billing: Yes ([id number]) Assessment & Plan Assessment & Plan (1) Rash: Code(s): R21 - Rash and other nonspecific skin eruption Category: Medical Plan: Patient will try avoid strong soaps detergents hot water apply clobetasol PRN and will schedule an appointment with software testing specialist (2) HTN (hypertension): Comment: Follows up with [employer] representative Dr. Quintero Code(s): I10 - Essential (primary) hypertension Category: Medical Plan: Continue current medications (3) Hypothyroidism: Code(s): E03.9 - Hypothyroidism, unspecified Category: Medical Plan: Continue levothyroxine check TSH today (4) Hx of colonoscopy: Comment: 2013 Code(s): Z98.890 - Other specified postprocedural states Category: Surgical Plan: Referred to GI for colonoscopy (5) Annual physical exam: Code(s): Z00.00 - Encounter for general adult medical examination without abnormal findings Category: Medical Plan: Well-balanced diet decreasing caloric intake increasing physical activity weight loss discussed with the patient. She is up-to-date with the mammogram and numerical control lathe operator for pelvic exam Orders: Orders Lipid Panel Today I10 - Essential (primary) hypertension, R21 - Rash and other nonspecific skin eruption Triiodothyronine T3 Free Today I10 - Essential (primary) hypertension, R21 - Rash and other nonspecific skin eruption Complete Blood Count Auto Diff Today E03.9 - Hypothyroidism, unspecified, I10 - Essential (primary) hypertension TSH reflex Free T4 Today E03.9 - Hypothyroidism, unspecified, I10 - Essential (primary) hypertension Lipid Panel 1 Year I10 - Essential (primary) hypertension, R21 - Rash and other nonspecific skin eruption Comprehensive [place]. Panel Fast Today I10 - Essential (primary) hypertension, R21 - Rash and other nonspecific skin eruption Complete Blood Count Auto Diff Today I10 - Essential (primary) hypertension, R21 - Rash and other nonspecific skin eruption TSH reflex Free T4 Today I10 - Essential (primary) hypertension, R21 - Rash and other nonspecific skin eruption UA w Microscopic Today I10 - Essential (primary) hypertension Comprehensive [place]. Panel Fast Today E03.9 - Hypothyroidism, unspecified, I10 - Essential (primary) hypertension Lipid Panel Today E03.9 - Hypothyroidism, unspecified, I10 - Essential (primary) hypertension Complete Blood Count Auto Diff 1 Year E03.9 - Hypothyroidism, unspecified, I10 - Essential (primary) hypertension Comprehensive [place]. Panel Fast 1 Year I10 - Essential (primary) hypertension, R21 - Rash and other nonspecific skin eruption TSH reflex Free T4 1 Year E03.9 - Hypothyroidism, unspecified, I10 - Essential (primary) hypertension Referrals Dermatology Referral R21 - Rash and other nonspecific skin eruption Gastroenterology Referral Z00.00 - Encounter for general adult medical examination without abnormal findings Medications: New clobetasol 0.025% 1 appl topical DAILY 100 grams 1RF Refilled amlodipine 2.5 mg PO DAILY 90 tabs 3RF carvedilol must administer with a meal/food 25 mg PO BID 180 tabs 3RF Inspra (eplerenone) 50 mg PO BID 180 tabs 3RF NS
== END 2024-11-16 11:38 | disposition home or self-care (01) ==
LOC: HO.HMCC 10:09
PROVIDERS: PCP Internal Medicine; Visit Provider Internal Medicine
DX: R21 Rash and other nonspecific skin eruption (principal); I10 Essential (primary) hypertension; E03.9 Hypothyroidism, unspecified; Z98.890 Other specified postprocedural states; Z00.00 Encounter for general adult medical examination without abnormal findings

== ENCOUNTER 2024-11-21 07:48 | Outpatient (REF) | payer OTHER, SELFPAY ==
[2024-11-21 11:05] LABS: MANUAL DIFF FLAG NO
[2024-11-21 11:09] LABS: Eosinophils Absolute Auto 0.1 X10*3/uL (0.0-0.4); Eosinophils Percent Auto 2.7 % (0-4); Hemoglobin 12.7 g/dl (12.0-16.0); Imm Gran Abs Auto 0.01 X10*3/uL (0.00-0.03); Imm Gran Pct Auto 0.2 % (0.0-0.4); Mean Corpuscular HGB Conc 32.6 g/dl (31.0-35.0); Mean Corpuscular Hemoglobin 26.3 pg (27.0-33.0); Mean Corpuscular Volume 80.9 fL (80.0-98.0); Mean Platelet Volume 10.4 fL (9.4-12.3); Monocytes Absolute Auto 0.4 X10*3/uL (0.1-1.2); Monocytes Percent Auto 9.9 % (2-11); Neutrophils Absolute Auto 1.6 x10*3/uL (2.0-8.3); Neutrophils Percent Auto 39.2 % (45-73); Platelet Count 235 X10*3/uL (160-400); Red Blood Count 4.82 X10*6/uL (4.20-5.50); Red Cell Distribution Width 12.6 % (11.0-16.0); White Blood Count 4.2 X10*3/uL (4.8-10.8)
[2024-11-21 11:21] LABS: Appearance Urine Clear; Color Urine Dark Yellow; Glucose Urine UA Negative (Negative); Leukocyte Esterase Urine Small (1+) (Negative); Nitrite Urine Negative (Negative); Specific Gravity - Urine 1.025 (1.005-1.025); UMIC TRIGGER UA YES; Urine Blood Negative (Negative); Urine Ketones Trace mg/dL (Negative); Urine Protein Negative (Neg-Trace)
[2024-11-21 11:29] LABS: Bacteria Urine None Seen (None Seen); RBC Urine 0-2 /HPF (0-2); Squamous Epithelial Cell Urine 0-2 /HPF (0-2)
[2024-11-21 11:33] LABS: Alanine Aminotransferase 13 U/L (0-31); Alkaline Phosphatase 136 U/L (39-117); Anion Gap 13 (12-20); Aspartate Amino Transferase 22 U/L (5-31); Bilirubin Total 1.1 mg/dL (0.0-1.0); Blood Urea Nitrogen 15 mg/dL (9-16); Calcium 9.3 mg/dL (8.4-10.2); Carbon Dioxide 25 mmol/L (22-29); Chloride 107 mmol/L (96-108); Cholesterol 165 mg/dL (<200); Estimated Glomerular Filt Rate > 60; Glucose Fasting 84 mg/dL (60-99); HDL Cholesterol 42 mg/dL (>40); LDL Cholesterol Calculated 111 mg/dL (<100); Potassium 3.9 mmol/L (3.3-5.1); Sodium 141 mmol/L (135-145); Total Protein 7.2 g/dL (6.5-8.0); Triglycerides 62 mg/dL (<150)
[2024-11-21 11:39] LABS: TSH reflex Free T4 0.02 uIU/mL (0.32-4.0)
[2024-11-21 12:48] LABS: Free T4 (Free Thyroxine) 1.37 ng/dL (0.71-1.85)
== END 2024-11-21 07:49 | disposition home or self-care (01) ==
LOC: HO.HMGCLDS 07:48
PROVIDERS: PCP Internal Medicine; Visit Provider Internal Medicine
DX: Z00.00 Encounter for general adult medical examination without abnormal findings (principal); I10 Essential (primary) hypertension; R21 Rash and other nonspecific skin eruption; E03.9 Hypothyroidism, unspecified
CPT/HCPCS: 36415; 80053; 80061; 81001; 84439; 84443; 85025; 87086

== ENCOUNTER 2025-01-30 08:40 | Outpatient (REF) | payer OTHER, SELFPAY ==
--- OUTSIDE RECORDS SUMMARY | 2025-01-30 08:43 | XMS_ITS | Clinical Summary ---
Author Organization [facility] Address [address] [place] [phone] Phone Care Team Providers Care Agriculture Research Director Name Role Phone Zhanna Casey MD Primary Care Provider [phone] Allergies Active Allergy Reactions Criticality Noted Date Comments Chlorthalidone Rash Low 02/22/2021 Furosemide Other (see comments) 02/22/2021 Hydrochlorothiazide Rash Low 01/14/2017 Spironolactone 02/22/2021 Medications levothyroxine (SYNTHROID, LEVOTHROID) 137 MCG tablet Take [...] Resolved Date Benign secondary hypertension 02/22/2021 02/04/2023 Encounters Date Type Department Care Team Description 11/25/2024 Orders Only [facility] [address] [phone] Shoaib Samson MD 11/18/2024 10:15 AM EDT Office Visit [facility] [address] [phone] Beatriz Valdivia ARNP Essential hypertension (Primary Dx) from Last 3 Months Immunizations Immunization Administration Dates Next Due Influenza [...] Sign Reading Time Taken Comments Blood Pressure 118/80 11/18/2024 10:54 AM EDT Pulse 61 11/18/2024 10:18 AM EDT Temperature - - Respiratory Rate - - Oxygen Saturation 98% 05/19/2024 10:43 AM EST Inhaled Oxygen Concentration - - Weight 103 kg (228 lb) 11/18/2024 10:18 AM EDT Height 167.6 cm (5' 6 ) 02/17/2024 3:10 PM EDT Body Mass Index 36.8 02/17/2024 3:10 PM EDT Plan of Treatment Upcoming Encounters Date Type Department Care Team (Late st Contact Info) Description 11/17/2025 10:00 AM EDT [facility] [address] [phone] Beatriz Valdivia ARNP [address] [place] [phone] Health Maintenance Due Date Last Done Comments Breast Cancer Screening 1970 Hepatitis B Vaccine (1 of 3 - 19+ 3-dose series) 1989 Pneumococcal Vaccine: 50+ Ye ars (1 of 2 - PCV) 1989 Colorectal Cancer Screening: Annual FOBT 2019 Colorectal Cancer Screening: Colonoscopy 2019 Colorectal Cancer Screening: Sigmoidoscopy 2019 Influenza Vaccine (#1) 2025 1, 05/20/2020, 05/02/2015, Additional history exists Procedures Procedure Name Priority Date/Time Associated Diagnosis Comments PROTEIN / CREATININE RATIO, URINE Routine 11/25/2024 9:05 AM EDT RENAL FUNCTION PANEL Routine 11/25/2024 9:05 AM EDT URINALYSIS MACROSCOPIC ONLY Routine 11/25/2024 9:05 AM EDT from Last 3 Months Results * (ABNORMAL) Urinalysis Macroscopic (11/25/2024 9:05 AM EDT) Specific [place], Urine 1.016 1.005 - 1.030 [facility] pH Urine 6.5 5.0 - 7.5 [facility] [phone] Color, Urine Yellow Yellow [facility] Appearance Urine Clear Clear [facility] [place] WBC Esterase Urine 3+(A) Negative [facility] Protein, Ur Negative Negative/Tra ce [facility] Glucose, Ur Negative Negative [facility] Ketones, Urine Negative Negative [facility] [place] [facility] Blood Urine Negative Negative [facility] Bilirubin Urine Negative Negative [facility] [place] [facility] Urobilinogen Urine 0.2 0.2 - 1.0 mg/dL [facility] [phone] Nitrite, Urine Negative Negative [facility] [phone] 11/25/2024 9:05 AM EDT 11/25/2024 us Shoaib Samson MD LAB URINE ORDERABLES Final Resu lt Performing Organization Address City/[facility]/ZIP Co de Phone Number [facility] [address] [place] [phone] * Protein, Total, Random Urine w/Creatinine (Protein/Creat Ratio) (11/25/2024 9:05 AM EDT) Creatinine, Ur 163.7 Not Estab. mg/dL [facility] Protein, Ur 8.0 Not Estab. mg/dL [facility] Urine Protein/Creatin ine Ratio 49 0 - 200 mg/g creat [facility] 11/25/2024 9:05 AM EDT 11/25/2024 us Shoaib Samson MD LAB URINE ORDERABLES Final Resu lt Performing Organization Address City/[facility]/ZIP Co de Phone Number [facility] [address] [place] [phone] * Renal Function Panel (11/25/2024 9:05 AM EDT) Glucose 89 70 - 99 mg/dL [facility] BUN 11 6 - 24 mg/dL [facility] Creatinine 0.80 0.57 - 1.00 mg/dL [facility] eGFR CKD-EPI CR 2020 88 >59 mL/min/1.7 3 [facility] BUN/Creatinine Ratio 14 9 - 23 [facility] Sodium 141 134 - 144 mmol/L [facility] Potassium 4.3 3.5 - 5.2 mmol/L [facility] Chloride 103 96 - 106 mmol/L [facility] Bicarbonate (CO2) 21 20 - 29 mmol/L [facility] Calcium 9.3 8.7 - 10.2 mg/dL [facility] Albumin 4.2 3.8 - 4.9 g/dL [facility] Phosphorus 4.3 3.0 - 4.3 mg/dL [facility] 11/25/2024 9:05 AM EDT 11/25/2024 us Shoaib Samson MD LAB BLOOD ORDERABLES Final Resu lt [facility] [address] [place] [phone] from Last 3 Months Insurance Medicaid Medicaid Care Teams Agriculture Research Director Relationship Specialty Start Date End Date Zhanna Casey MD [address] [place] [address] PCP - General 07/11/20
[2025-01-30 12:58] LABS: Free T4 (Free Thyroxine) 1.46 ng/dL (0.71-1.85)
== END 2025-01-30 08:41 | disposition home or self-care (01) ==
LOC: HO.HMGCLDS 08:40
PROVIDERS: Internal Medicine; PCP Internal Medicine; Visit Provider Internal Medicine
DX: E03.9 Hypothyroidism, unspecified (principal)
CPT/HCPCS: 36415; 84439; 84443

== ENCOUNTER 2025-04-05 07:41 | Outpatient (REF) | payer OTHER, SELFPAY ==
--- OUTSIDE RECORDS SUMMARY | 2025-04-05 07:43 | XMS_ITS | Patient Health Record ---
Author Organization [facility] Address [address] [place] [address] Care Team Providers Care Home Office Claim Specialist Name Role Phone Zhanna Casey MD Primary Care Provider Duke Rodriguez Unavailable [phone] Allergies Allergen (clinical drug ingredient) Drug/Non Drug Allergy documented on EMR Reaction Allergy Type Onset Date Status diltiazem dilTIAZem Unknown Drug Allergy Active hydrochlorothiazide hydroCHLOROthiazide Unknown Drug Aller gy Active furosemide Furosemide Unknown Drug Allergy Activ e felodipine Felodipine Unknown Drug Allergy Activ e chlorthalidone Chlorthalidone Unknown Drug Allergy Active irbesartan Irbesartan Unknown Drug Allergy Activ e Reason For Referral No Information Medications Medication SIG (Take, Route, Frequency, Duration) Notes Start Date End Date Status Levothyroxine Sodium 125 MCG 1 tablet in the morning on an empty stomach Orally Once a day Active amLODIPine Besylate 5 MG 1 tablet Orally Once a day Active Eplerenone 50 MG 1 tablet Orally Once a day Active Carvedilol 25 MG 1 tablet with food Orally Twice a day Active Social History Tobacco Use: Social History Observation Description Date Details (start date - stop date) Never Smoker NA - NA Tobacco Control (Standard) Question Answer Notes Tobacco use: Nonsmoker AUDIT-C (Standard) Question Answer Notes Did you have a drink containing alcohol in the p ast year? No Points 0 Interpretation Negative Problems Problem Type SNOMED Code ICD Code Onset Dates Problem Status W/U Status Risk Notes Problem Colon cancer screening (567396303) Colon cancer screening (Z12.11) Active confirmed Problem Preprocedural examination (313468513526428) Preprocedural examination (Z01.818) Active confirmed Vital Signs Blood pressure diastolic 77 mm Hg 03/02/2025 Height 66 in 03/02/2025 Blood pressure systolic 111 mm Hg 03/02/2025 Weight 238 lbs 03/02/2025 BMI 38.41 kg/m2 03/02/2025 Procedures Procedure Date Ordered Date Performed Result Body Sit e COLONOSCOPY 03/02/2025 N/A Encounters Encounter Location Date Provider Diagnosis [facility] [address] [place] [address] 03/02/2025 Duke Gilbert Colon cancer screeni ng Z12.11 and Preprocedural examination Z01.818 Assessments Encounter Date Diagnosis (ICD Code) Assessment Notes Treatment Notes Treatment Clinical Notes Section Notes 03/02/2025 Colon cancer screening (ICD-10 - Z12.11) Overall, Kristie appears well and is not having any new or worrisome GI complaints. Given her age, good clinical appearance, and her last colonoscopy being about 10 years ago, I did recommend a follow-up colonoscopy for further screening purposes. We did review the rationale for this in regard to colon cancer prevention. Full consent has been obtained for this, including risks of bleeding and perforation. The procedure will be done with monitored anesthesia care. She was given the below instruction regarding adjustment of her medication for the procedure. Kristie was comfortable with this plan. Thank you again for allowing me to participate in Kristie's care. I shall continue to keep you advised of her progress. 03/02/2025 Preprocedural examination (ICD-10 - Z01.818) Overall, Kristie appears well and is not having any new or worrisome GI complaints. Given her age, good clinical appearance, and her last colonoscopy being about 10 years ago, I did recommend a follow-up colonoscopy for further screening purposes. We did review the rationale for this in regard to colon cancer prevention. Full consent has been obtained for this, including risks of bleeding and perforation. The procedure will be done with monitored anesthesia care. She was given the below instruction regarding adjustment of her medication for the procedure. Kristie was comfortable with this plan. Thank you again for allowing me to participate in Kristie's care. I shall continue to keep you advised of her progress. Plan Of Treatment Pending Test Test Name Order Date COLONOSCOPY 03/02/2025 Next Appt Details Provider Name:Duke Cadena Gilbert , 06/02/2025 09:30:00 AM, [address], [place], [phone], Insurance Providers Payer Name Payer Address Payer Phone Subscriber Number Group Number Insured Name Patient Relationship to Insured Coverage Start Date Coverage End Date [facility] [employer] [address] [address] [place], [place] [id number] KRISTIE SORTO Self - patient is the insured Medical (General) History Medical History History ICD Code Hypertension Hypothyroidism Kidney stones Denies CA,DM,CVA,Lung disease,renal dise ase Negative colonoscopy at age 43 at [facility] Surgical History Surgery Date(Month/Year) Thyroidectomy Hysterectomy
--- OUTSIDE RECORDS SUMMARY | 2025-04-05 07:43 | XMS_ITS | Clinical Summary ---
Author Organization [facility] Address [address] [place] [address] Phone Care Team Providers Care Blacksmith Assistant Name Role Phone Zhanna Casey MD Primary Care Provider [phone] Allergies Active Allergy Reactions Criticality Noted Date [...] 4 Active amLODIPine (NORVASC) 5 MG tablet TAKE 1 TABLET BY MOUTH 1 TIME EACH DAY. 90 tablet 3 5 Active Active Problems Problem Noted Date Diagnosed Date Essential hypertension 02/22/2021 Renal stone 02/22/2021 Hypokalemia 03/16/2014 Resolved Problems Problem Noted Date Diagnosed Date Resolved Date Benign secondary hypertension 02/22/2021 02/04/2023 Encounters Date Type Department Care Team Description 02/01/2025 Refill [facility] [address] [place] [address] Shoaib Samson MD from Last 3 Months Immunizations Immunization Administration [...] Office Visit [facility] [address] [facility] [place] [phone] Beatriz Valdivia ARNP [address] [facility] [place] [address] Health Maintenance Due Date Last Done Comments Breast Cancer Screening 1970 Hepatitis B Vaccine (1 of 3 - 19+ 3-dose series) 1989 Pneumococcal Vaccine: 50+ Ye ars (1 of 2 - PCV) 1989 Colorectal Cancer Screening: Annual FOBT 2019 Colorectal Cancer Screening: Colonoscopy 2019 Colorectal Cancer Screening: Sigmoidoscopy 2019 Influenza Vaccine (#1) 2025 , 05/20/2020, 05/02/2015, Additional history exists Insurance Medicaid Medicaid Care Teams Blacksmith Assistant Relationship Specialty Start Date End Date Zhanna Casey MD [address] [place] [id number] PCP - General 07/11/20
[2025-04-05 11:45] LABS: Free T4 (Free Thyroxine) 1.21 ng/dL (0.71-1.85)
== END 2025-04-05 07:42 | disposition home or self-care (01) ==
LOC: HO.HMGCLDS 07:41
PROVIDERS: PCP Internal Medicine; Visit Provider Internal Medicine
DX: E03.9 Hypothyroidism, unspecified (principal)
CPT/HCPCS: 36415; 84439; 84443

== ENCOUNTER 2025-06-02 08:22 | Day surgery (SDC) | payer OTHER, SELFPAY ==
--- OUTSIDE RECORDS SUMMARY | 2025-04-27 09:24 | XMS_ITS | Patient Health Record ---
Author Organization [facility] Address [address] [place] [address] Care Team Providers Care Logging Engineer Name Role Phone Zhanna Casey MD Primary Care Provider Duke Rodriguez Unavailable [phone] Allergies Allergen (clinical drug ingredient) Drug/Non Drug Allergy documented on EMR Reaction Allergy Type Onset Date Status hydrochlorothiazide hydroCHLOROthiazide Unknown Drug Aller gy Active furosemide Furosemide Unknown Drug Allergy Activ e felodipine Felodipine Unknown Drug Allergy Activ e chlorthalidone Chlorthalidone Unknown Drug Allergy Active irbesartan Irbesartan Unknown Drug Allergy Activ e diltiazem dilTIAZem Unknown Drug Allergy Active Reason For Referral No Information Medications Medication [...] Status Risk Notes Problem Colon cancer screening (827150252) Colon cancer screening (Z12.11) Active confirmed Problem Preprocedural examination (639704785954242) Preprocedural examination (Z01.818) Active confirmed Vital Signs Blood pressure diastolic 77 mm Hg 03/02/2025 Height 66 in 03/02/2025 Blood pressure systolic 111 mm Hg 03/02/2025 Weight 238 lbs 03/02/2025 BMI 38.41 kg/m2 03/02/2025 Procedures Procedure Date Ordered Date Performed Result Body Sit e COLONOSCOPY 03/02/2025 N/A Encounters Encounter Location Date Provider Diagnosis [facility] [address] [place] [address] 03/02/2025 Duke Gilbert Colon cancer screeni ng [...] Cadena Gilbert , 06/02/2025 09:30:00 AM, [address], [place], [phone], Insurance Providers Payer Name Payer Address Payer Phone Subscriber Number Group Number Insured Name Patient Relationship to Insured Coverage Start Date Coverage End Date [employer] [address] [address] [place], [place] [id number] KRISTIE SORTO Self - patient is the insured Medical (General) History Medical History History ICD Code Hypertension Hypothyroidism Kidney stones Denies CO,DM,CVA,Lung disease,renal dise ase Negative colonoscopy at age 43 at [facility] Surgical History Surgery Date(Month/Year) Thyroidectomy Hysterectomy
--- NOTE | 2025-05-31 10:08 | P.CONAN_ITS ---
Documented by User: Janel Villafana NP 05/31/25 10:09 HPI - Anesthesia Eval Consult details Narrative: 55yo F for Colonoscopy Follows renal for HTN with multiple med ADRs. PMFSH Active Problems Active Problems: All Active Problems New onset headache (Acute) Menorrhagia (Acute) Heart murmur (Acute) Hypothyroidism (Acute) Normal pelvic exam (Acute) Annual physical exam (Acute) Normal breast exam (Acute) Hx of colonoscopy (Acute) HTN (hypertension) (Acute) Rash (Acute) Past Medical History Medical History Normal pelvic exam Annual physical exam Normal breast exam Rash Chronic iron deficiency anemia Menorrhagia Obesity Thyroid nodule Goiter HTN (hypertension) Family History Family History Father HTN (hypertension) Diabetes mellitus Mother No problems noted. Surgical History Surgical History Hx of hysterectomy Hx of colonoscopy Social History Social History Housing: House Patient Tobacco Use Status: Never used Tobacco e-Cigarette/Vaping Use: Never Used Use of substances other than those prescribed or required for medical reasons: No Advance Directives: No Advance Directives Information Provided: Yes service: No Current occupational status: employed Cognitive needs: No Hearing needs: No Vision needs: Yes Meds Allergies Allergy/AdvReac Type Severity Reaction Status Date / Time benazepril (Lotrel) Allergy Unknown unknown Verified 06/02/25 08:54 chlorthalidone Allergy Unknown unknown Verified 06/02/25 08:54 clonidine Allergy Unknown unknown Verified 06/02/25 08:54 diltiazem (Cardizem) Allergy Unknown Unknown Verified 06/02/25 08:54 felodipine Allergy Unknown unknown Verified 06/02/25 08:54 furosemide Allergy Unknown unknown Verified 06/02/25 08:54 hydrochlorothiazide (Avalide) Allergy Unknown unknown Verified 06/02/25 08:54 irbesartan (Avalide) Allergy Unknown unknown Verified 06/02/25 08:54 valsartan (Diovan) Allergy Unknown unknown Verified 06/02/25 08:54 Home Medications ?Medication ?Instructions ?Recorded ?Confirmed ?Last Taken ?Type amlodipine 2.5 mg tablet 5 mg PO DAILY 05/31/2506/0206/02/25 History Exam Pertinent Lab Results Pertinent Lab Results: Laboratory Tests 11/21/24 07:57 WBC 4.2 L Hgb 12.7 Hct 39.0 Plt Count 235 Sodium 141 Potassium 3.9 Chloride 107 Carbon Dioxide 25 BUN 15 Creatinine 0.80 Assessment and Plan Assessment Anesthesia Assessment: Chart Reviewed Documented by User: Mario Gomes MD 06/02/25 10:56 [facility] Past Medical History Medical History Normal pelvic exam Annual physical exam Normal breast exam Rash Chronic iron deficiency anemia Menorrhagia Obesity Thyroid nodule Goiter HTN (hypertension) Cognitive capacity: good Functional capacity: independent ambulation Family History Family History Father HTN (hypertension) Diabetes mellitus Mother No problems noted. Family history of problems with anesthesia: No Surgical History Surgical History Hx of hysterectomy Hx of colonoscopy History of Problems with Anesthesia: No Social History Social History Housing: House Patient Tobacco Use Status: Never used Tobacco e-Cigarette/Vaping Use: Never Used Use of substances other than those prescribed or required for medical reasons: No Advance Directives: No Advance Directives Information Provided: Yes service: No Current occupational status: employed Cognitive needs: No Hearing needs: No Vision needs: Yes Meds Allergies Allergy/AdvReac Type Severity Reaction Status Date / Time benazepril (Lotrel) Allergy Unknown unknown Verified 06/02/25 08:54 chlorthalidone Allergy Unknown unknown Verified 06/02/25 08:54 clonidine Allergy Unknown unknown Verified 06/02/25 08:54 diltiazem (Cardizem) Allergy Unknown Unknown Verified 06/02/25 08:54 felodipine Allergy Unknown unknown Verified 06/02/25 08:54 furosemide Allergy Unknown unknown Verified 06/02/25 08:54 hydrochlorothiazide (Avalide) Allergy Unknown unknown Verified 06/02/25 08:54 irbesartan (Avalide) Allergy Unknown unknown Verified 06/02/25 08:54 valsartan (Diovan) Allergy Unknown unknown Verified 06/02/25 08:54 Home Medications ?Medication ?Instructions ?Recorded ?Confirmed ?Last Taken ?Type amlodipine 2.5 mg tablet 5 mg PO DAILY 05/31/2506/0206/02/25 History Exam Exam Date and Time: 06-02-2025 Airway Mallampati Class: II Heart: normal Lungs: normal Other: normal Assessment and Plan Assessment Anesthesia Assessment: Anesthesia Plan Discussed Final Anesthetic Review Family History of Problems with Anesthesia: No History of Problems with Anesthesia: No NPO: Yes ASA Class: II Final Preanesthetic Review: No Changes in Pt Med Stat, Meds/Allgs Chart Reviewed, Consent Obtained/Reviewed and Anes Risks/Benef Reviewed Patient Risk: Low Procedure Risk: Low Assessment/Block/Sedation in SS: Assess/Block/Sedation-SS Anesthetic Plan Anesthetic Plan: MAC: and Agree w/ Assess. and Plan Disposition: Standard PACU and Inp. Admit - IMC
[2025-05-31 11:22] VITALS: BMI 38.4
[2025-06-02 08:49] VITALS: BMI 36.6
[2025-06-02 08:56] VITALS: BP 124/85; PULSE 60; RESP 16; TEMP 36.8; O2SAT 97
[2025-06-02 11:06] VITALS: BP 121/72; PULSE 59; RESP 17; TEMP 36.2; O2SAT 98
--- NOTE | 2025-06-02 11:09 | PM.OP ---
Brief Operative Note Date of Service: 06/02/25 Pre-op diagnosis: Screening Post-op diagnosis: other (Polyp) Procedure: Colonoscopy to the cecum and TI with bx/removal of polyp Surgeon: Duke Gilbert MD Anesthesia: MAC Was an Track Repair Person used for this Procedure?: No Estimated blood loss (mL): 2.0 Pathology: other (A. Rectal polyp) Condition: stable Disposition: PACU
[2025-06-02 11:20] VITALS: BP 136/78; PULSE 59; RESP 16; O2SAT 99
[2025-06-02 11:35] VITALS: BP 138/91; PULSE 58; RESP 16; TEMP 36.2; O2SAT 100
--- NOTE | 2025-06-02 12:16 | OP_ITS ---
DATE OF SERVICE: 06/02/2025 SURGEON: Duke Gilbert MD INDICATIONS: The patient presents for evaluation of colorectal cancer screening. Full consent has been obtained from her for this, including risks of bleeding and perforation. PREOPERATIVE DIAGNOSIS: Colorectal cancer screening. POSTOPERATIVE DIAGNOSIS: Colorectal cancer screening, rectal polyp, sigmoid diverticulosis, and internal hemorrhoids. PROCEDURE PERFORMED: Colonoscopy to cecum and terminal ileum with biopsy removal of polyp. ESTIMATED BLOOD LOSS: COMPLICATIONS: ANESTHESIA: Monitored anesthesia care. ASSISTANTS: SPECIMENS: DESCRIPTION OF PROCEDURE: The patient was placed in the left lateral decubitus position. The digital rectal exam revealed no abnormalities. The Olympus video pediatric colonoscope was entered into the rectum and advanced easily to the cecum. Once in the cecum, I did identify normal-appearing cecal pouch with appendiceal orifice and a normal-appearing ileocecal valve. The terminal ileum was cannulated and appeared normal. Scope withdrawn back in the colon. The entire cecum and ileocecal valve appeared normal. The scope was slowly withdrawn assessing all mucosal surfaces carefully. Preparation was excellent. I did not visualize any sign of colitis nor angiodysplasia. There was a mild amount of sigmoid diverticulosis. In the rectum, in the more proximal portion, was an approximately 5 or 6 mm polyp, which was removed completely with the cold biopsy forceps. The scope was retroflexed visualizing some internal hemorrhoids as well. The scope was straightened and withdrawn from the patient. She tolerated the procedure well and was returned to the recovery area in stable condition. IMPRESSION: 1. Rectal polyp. 2. Diverticulosis. 3. Internal hemorrhoids. PLAN: The results of the pathology will be checked. If this happens to be a tubular adenoma, I would recommend a followup colonoscopy in 5 years. If it is only hyperplastic, I would recommend a followup colonoscopy in 10 years. She will otherwise see me as needed. She was advised not to use any aspirin or NSAIDs for 1 week. Duke Gilbert MD RMMichelle/CANDELARIOL / [id number]
== END 2025-06-02 12:31 | disposition home or self-care (01) ==
PROVIDERS: PCP Internal Medicine; Visit Provider Internal Medicine
PROC: 0DJD8ZZ Inspection of Lower Intestinal Tract, Via Natural or Artificial Opening Endoscopic (ICD-10-PCS; CPT 45378; principal; 2025-06-02 09:30)
DX: Z12.11 Encounter for screening for malignant neoplasm of colon (principal); K62.1 Rectal polyp; K57.30 Diverticulosis of large intestine without perforation or abscess without bleeding; K64.8 Other hemorrhoids; I10 Essential (primary) hypertension; E03.9 Hypothyroidism, unspecified; Z87.442 Personal history of urinary calculi; Z79.899 Other long term (current) drug therapy; Z88.8 Allergy status to other drugs, medicaments and biological substances; Z90.710 Acquired absence of both cervix and uterus
CPT/HCPCS: 45380; 88305; J2003; J2704; J3010

== ENCOUNTER 2025-06-05 07:57 | Outpatient (REF) | payer OTHER, SELFPAY ==
--- OUTSIDE RECORDS SUMMARY | 2025-06-05 07:59 | XMS_ITS | Clinical Summary ---
Author Organization [facility] Address [address] [place] [phone] Phone Care Team Providers Care Executive Compensation Analyst Name Role Phone Zhanna Casey MD Primary Care Provider [phone] Allergies Active Allergy Reactions Criticality Noted Date [...] Visit [facility] [address] [address] Beatriz Valdivia ARNP [address] [address] Health Maintenance Due Date Last Done [...] history exists Insurance Medicaid Medicaid Care Teams Executive Compensation Analyst Relationship Specialty Start Date End Date Zhanna Casey MD [address] [place] [address] PCP - General 07/11/20
== END 2025-06-05 07:58 | disposition home or self-care (01) ==
LOC: HO.HMGCLDS 07:57
PROVIDERS: PCP Internal Medicine; Visit Provider Internal Medicine
DX: E03.9 Hypothyroidism, unspecified (principal)
CPT/HCPCS: 36415; 84443; 84481